=== PATIENT | female | born 1960 | race Caucasian/White ===

== ENCOUNTER 2021-11-02 14:59 | Emergency (ER) | payer MEDICAID ==
[~2021-11-02] VITALS: Ht 157.5 cm; Wt 68.9 kg
[2021-11-02 15:15] VITALS: BP 118/79
[2021-11-02] MEDS ORDERED: ONDANSETRON 4 MG/2 ML VIAL IVP ONE (15:40)
[2021-11-02] MEDS ORDERED: NACL 0.9% 1,000 ML IV SCH (15:40)
[2021-11-02] MEDS ORDERED: KETOROLAC 30 MG/ML VIAL IVP ONE (15:40)
--- NOTE | 2021-11-02 16:00 | NUR ---
PATIENT'S URINE SAMPLE WALKED TO LAB AT THIS TIME.
--- NOTE | 2021-11-02 16:08 | NUR ---
DR. SHOEMAKER EVALUATING PATIENT AT BEDSIDE
--- NOTE | 2021-11-02 16:11 | NUR ---
61/F BIB SELF WITH C/O RUQ PAIN AND DIARRHEA X1 WEEK, STATES SHE WAS DX WITH UTI AND SHINGLES ON SUNDAY AND GIVEN MEDICATION, STATES SYMPTOMS HAVE BEEN CONTINUING SINCE. PATIENT DENIES NAUSEA, CP, SOB OR URINARY SYMPTOMS.
[2021-11-02] MEDS ORDERED: MORPHINE SULFATE 4 MG/ML SYR IVP ONE (16:15)
[2021-11-02] MEDS ORDERED: ONDA8TAB87 PO (16:22)
[2021-11-02] MEDS ORDERED: ACET-8386 PO (16:22)
[2021-11-02] MEDS ORDERED: IBUP-2213 PO (16:22)
[2021-11-02 16:30] LABS: APPEARANCE,URINE CLEAR (CLEAR); BILIRUBIN,URINE NEGATIVE (NEGATIVE); BLOOD, URINE NEGATIVE (NEGATIVE); LEUKOCYTE ESTERASE ,URINE NEGATIVE (NEGATIVE); NITRITE, URINE NEGATIVE (NEGATIVE); UGLUCOSE 3+ (NEGATIVE)
[2021-11-02 16:31] LABS: ALBUMIN 3.7 g/dL (3.4-5.0); ANION GAP 11.6 (8-16); CARBON DIOXIDE 30.3 mmol/L (21-32); CREATININE 0.9 mg/dL (0.6-1.3); POTASSIUM 3.9 mmol/L (3.5-5.1); TOTAL BILIRUBIN 0.3 mg/dL (0.0-1.0)
[2021-11-02 16:35] LABS: COLOR,URINE STRAW (YELLOW)
[2021-11-02 16:50] LABS: BASOPHILS % (AUTO) 0.4 % (0.0-2.0); EOSINOPHILS # (AUTO) 0.3 K/uL (0-0.4); HEMATOCRIT 39.4 % (36-48); HEMOGLOBIN 13.3 g/dL (12.0-16.0); LYMPHOCYTES # (AUTO) 1.8 K/uL (2.5-16.5); LYMPHOCYTES % (AUTO) 19.3 % (20.5-51.1); MEAN CORPUSCULAR HEMOGLOBIN 30 pg (27-31); MEAN CORPUSCULAR HGB CONC 34 g/dL (33-37); MEAN CORPUSCULAR VOLUME 89.1 fL (80-94); MONOCYTES # (AUTO) 0.4 K/uL (0.8-1.0); MONOCYTES % (AUTO) 4.2 % (1.7-9.3); NEUTROPHILS # (AUTO) 6.8 K/uL (1.8-7.7); NEUTROPHILS % (AUTO) 73.1 % (42.2-75.2); PLATELET COUNT (AUTO) 287 K/uL (140-450); RED BLOOD CELL COUNT(AUTO) 4.43 MIL/uL (4.20-5.40); RED CELL DISTRIBUTION WIDTH 13.3 % (11.6-13.7); WHITE BLOOD COUNT (AUTO) 9.3 K/uL (4.8-10.8)
--- NOTE | 2021-11-02 17:16 | NUR ---
IV removed, catheter intact and site benign. Applied folded 4x4 gauze and tape to stop bleeding.
[2021-11-02 17:17] VITALS: BP 150/72
--- NOTE | 2021-11-02 17:17 | NUR ---
Patient discharged with v/s stable. Written and verbal after care instructions ABOUT POSTHERPETIC NEURALGIA given and explained. Patient alert, oriented and verbalized understanding of instructions. Ambulatory with steady gait. All questions addressed prior to discharge. ID band removed. Patient advised to follow up with PMD. Rx of NORCO 5-325, IBUPROFEN AND ZOFRAN given. Patient educated on indication of medication including possible reaction and side effects. Opportunity to ask questions provided and answered.
== END 2021-11-02 17:17 | disposition home or self-care (01) ==
LOC: MED 14:59
DX: R10.11 Right upper quadrant pain (principal); B02.29 Other postherpetic nervous system involvement; R11.0 Nausea; R19.7 Diarrhea, unspecified; J45.909 Unspecified asthma, uncomplicated; E11.9 Type 2 diabetes mellitus without complications; I10 Essential (primary) hypertension; Z98.890 Other specified postprocedural states; Z90.49 Acquired absence of other specified parts of digestive tract; Z79.899 Other long term (current) drug therapy
CPT/HCPCS: 36415; 80053; 81003; 83690; 85025; 96361; 96374; 96375; 99284; J1885; J2270; J2405; J7030

== ENCOUNTER 2022-02-02 16:29 | Emergency (ER) | payer MEDICAID ==
[~2022-02-02] VITALS: Ht 157.5 cm; Wt 71.7 kg
[~2022-02-02 16:29] MED LIST: ACET-8386 PO; IBUP-2213 PO; ONDA8TAB87 PO
[2022-02-02 17:06] VITALS: BP 153/120
[2022-02-02] MEDS ORDERED: ACETAMINOPHEN EXTRA STRENGTH 500 MG TAB PO ONE (17:35)
[2022-02-02] MEDS ORDERED: KETOROLAC 15 MG/ML VIAL IVP ONE (17:35)
[2022-02-02] MEDS ORDERED: LORazepam 2 MG/ML VIAL IVP ONE (17:35)
[2022-02-02 17:54] LABS: BASOPHILS % (AUTO) 0.3 % (0.0-2.0); EOSINOPHILS # (AUTO) 0.5 K/uL (0-0.4); EOSINOPHILS % (AUTO) 5.4 % (0.0-4.0); HEMATOCRIT 38.5 % (36-48); HEMOGLOBIN 12.7 g/dL (12.0-16.0); LYMPHOCYTES # (AUTO) 2.5 K/uL (2.5-16.5); LYMPHOCYTES % (AUTO) 26.2 % (20.5-51.1); MEAN CORPUSCULAR HEMOGLOBIN 30 pg (27-31); MEAN CORPUSCULAR HGB CONC 33 g/dL (33-37); MEAN CORPUSCULAR VOLUME 90.7 fL (80-94); MONOCYTES # (AUTO) 0.6 K/uL (0.8-1.0); MONOCYTES % (AUTO) 5.8 % (1.7-9.3); NEUTROPHILS # (AUTO) 5.9 K/uL (1.8-7.7); NEUTROPHILS % (AUTO) 62.3 % (42.2-75.2); PLATELET COUNT (AUTO) 305 K/uL (140-450); RED BLOOD CELL COUNT(AUTO) 4.25 MIL/uL (4.20-5.40); RED CELL DISTRIBUTION WIDTH 13.8 % (11.6-13.7); WHITE BLOOD COUNT (AUTO) 9.5 K/uL (4.8-10.8)
[2022-02-02 18:13] LABS: ANION GAP 8.3 (8-16); CARBON DIOXIDE 30.9 mmol/L (21-32); CREATININE 1.1 mg/dL (0.6-1.3); POTASSIUM 4.2 mmol/L (3.5-5.1); TOTAL BILIRUBIN 0.3 mg/dL (0.0-1.0)
[2022-02-02] MEDS ORDERED: HYDR25CA10 PO (19:10)
[2022-02-02] MEDS ORDERED: MELA1TAB32 PO (19:10)
[2022-02-02] MEDS ORDERED: ACET-10509 PO (19:10)
[2022-02-02] MEDS ORDERED: ONDA-188 PO (19:10)
[2022-02-02 19:34] VITALS: BP 138/74
== END 2022-02-02 19:34 | disposition home or self-care (01) ==
LOC: MED 16:29
DX: R51.9 Headache, unspecified (principal); E11.65 Type 2 diabetes mellitus with hyperglycemia; F43.9 Reaction to severe stress, unspecified; J45.909 Unspecified asthma, uncomplicated; I10 Essential (primary) hypertension; Z79.899 Other long term (current) drug therapy
CPT/HCPCS: 36415; 70450; 80053; 81002; 85025; 96374; 96375; 99284; J1885; J2060